=== PATIENT | female | born 1980 | race Caucasian/White ===

== ENCOUNTER → 2017-10-29 14:06 | Outpatient (CLI) | payer MEDICAID, SELFPAY ==
[2017-11-02 16:56] LABS: HPV Reflexed? NOT INDICATED
== END ==
PROVIDERS: Visit Provider Obstetrics & Gynecology
DX: Z12.4 Encounter for screening for malignant neoplasm of cervix (principal)
CPT/HCPCS: 88175; G0145

== ENCOUNTER 2019-07-20 11:34 | Emergency (ER) | payer SELFPAY ==
[2019-07-20 11:35] VITALS: BP 140/95; PULSE 72; RESP 16; TEMP 37; O2SAT 100; BMI 32.1
--- NOTE | 2019-07-20 11:52 | NURSING ---
NO OLD EKGS
--- NOTE | 2019-07-20 12:04 | NURSING ---
NO OLD EKGS
--- NOTE | 2019-07-20 12:20 | CT_ITS ---
STUDY: CTA CHEST REASON FOR EXAM: Female, 38 years old. SOB, PALPITATIONS, RT ARM TIGHTNESS, STERNAL DISCOMFORT RADIATION DOSAGE (If Supplied By Facility): CTDIvol = ( 10.94 ) mGy, DLP = ( 439.02 ) mGycm TECHNIQUE: The examination was performed with the intravenous administration of IV 100mL Isovue-370. Post-processing of the angiographic images was performed, with multiplanar reformation and 3D reconstruction. Individualized dose optimization techniques were used for this CT. COMPARISON: None. FINDINGS: Normal enhancement of the main pulmonary artery and right and left pulmonary arteries. Normal enhancement of the bilateral peripheral pulmonary arteries. There is no demonstrated pulmonary embolism. Normal thoracic aorta and visualized great vessels. There is no demonstrated aortic dissection. Normal heart and pericardium. Normal mediastinum. Normal hilar regions. Normal visualized trachea and bronchi. The lungs are well expanded. Normal pulmonary parenchyma. Normal pleura. Normal chest wall structures. Normal osseous structures. Small hiatal hernia. CT/CTA Chest W/WO Contrast IMPRESSION: Normal CTA chest examination, without a demonstrated pulmonary embolism or arterial dissection. Electronically Signed: Jignesh Guevara, at 13:37 EST , Service support ,
--- NOTE | 2019-07-20 12:20 | EKG12_ITS ---
Test Reason : SOB Blood Pressure : / mmHG Vent. Rate : 068 BPM Atrial Rate : 068 BPM P-R Int : 128 ms QRS Dur : 070 ms QT Int : 404 ms P-R-T Axes : 046 007 017 degrees QTc Int : 429 ms Normal sinus rhythm Normal ECG Confirmed by PRAMOD CROCKETT, JOSELUIS ([id number]), script editor AYDEN REEVES ([id number]) on 07/22/2019 10:03:06 AM Referred By: SOFIE/JULIA Confirmed By:SERA BENAVIDEZ MD
[2019-07-20] MEDS: Aspirin 81 MG TAB.CHEW 324 MG PO (12:41)
[2019-07-20 12:43] VITALS: BP 141/91; PULSE 66; RESP 18; O2SAT 100
[2019-07-20 12:44] LABS: Absolute Lymphocyte Count 1.94 X10^3/uL (0.83-4.51); Basophil# 0.08 X10^3/uL; Basophil% 1.2 % (0-1); Eosinophil# 0.19 X10^3/uL; Eosinophils% 2.9 % (0-5); Hematocrit 39.7 % (37-47); Hemoglobin 13.1 g/dL (12.0-15.0); Lymphocyte # 1.94 X10^3/ul (4.0); Lymphocyte % 29.9 % (19-41); Mean Corpuscular Hgb 29.8 pg (27.0-32.0); Mean Corpuscular Volume 90.2 fL (81-99); Mean Platelet Vol. 11.1 fl (6.2-12.0); Monocyte% 4.6 % (0-10); NRBC Flagged by Analyzer 0 % (0-5); Neutrophil # 3.96 X10^3/uL (2.7-7.7); Neutrophil % 61.2 % (47-70); Platelet Count 223 K/mm3 (150-450); RBC Distribution Width CV 12.5 % (11.6-14.6); RBC Distribution Width SD 41.2 fl (35.1-43.9); White Blood Count 6.5 K/mm3 (4.4-11.0)
[2019-07-20 13:04] LABS: Anion Gap 2 (5-15); BUN 5 mg/dL (7-18); BUN/Creat Ratio 7.2 RATIO (10-20); Calcium,Total 9.3 mg/dL (8.5-10.1); Chloride 110 mmol/L (98-107); Creatinine, Serum 0.69 mg/dL (0.55-1.02); EST Glomerular Filtration Rate 99 mL/min (>60); Est Glom Filt Rate - Afr Amer 120 mL/min (>60); Estimated Creatinine Clearance 93.59 ml/min; Glucose 95 mg/dL (74-106); Potassium 3.8 mmol/L (3.5-5.1); Sodium Level 140 mmol/L (136-145)
[2019-07-20 13:25] VITALS: BP 139/103; PULSE 64; RESP 14; O2SAT 97
[2019-07-20 14:05] VITALS: BP 110/91; PULSE 65; RESP 11; O2SAT 98
--- NOTE | 2019-07-20 14:06 | ED.VISSUMM ---
- ER Visit Summary Date of Service: 07/20/19 Chief Complaint: Chest pain History of Present Illness: The patient is a 38 F who presents with chest pain. Started today. She describes a tightness in the middle part of her chest. It does not radiate. Nothing really makes it better or worse. She did have associated shortness of breath with this. She had palpitations 2 days ago but they improved on their own. Her right arm felt tight last night. She has a history of a VSD which apparently closed in her 30s. She has no PE or DVT risk factors. She has no coronary artery disease history. She has seen Dr. Lyons in the past. Physical Examination: Vital signs reviewed. HEENT exam unremarkable. Heart is regular rate and rhythm without murmurs. Lungs are clear to auscultation. Abdomen is soft and nontender. Extremities reveal no edema. Peripheral pulses are equal. Skin exam normal. Neurologic exam normal. Test Results: EKG is a sinus rhythm with a rate of 63. No ST changes. Laboratory studies normal. CT of the chest reveals no evidence of PE or dissection Emergency Department Course and Treatment: The patient was given aspirin. I find no acute causes for the patient's pain. I did discuss with Dr. Lyons. He feels the patient can be discharged. He will see the patient in follow-up tomorrow. Patient was reassured Treatment Plan: [] Disposition: Discharge Impression: Chest pain This note was generated with [employer] dictation software. It may contain incorrect words, spelling, and punctuation that were not noted in review of the chart prior to signing ED Disposition - Plan for ED Patient: Disposition: Home or Assisted Living Instructions: CHEST PAIN, NonCardiac Referrals: Care Physician,No Primary [Primary Care Provider] - Victor Hugo Lyons MD [STAFF PHYSICIAN] -
[2019-07-20 14:19] VITALS: BP 110/91; PULSE 64; RESP 16; O2SAT 98
== END 2019-07-20 14:20 | disposition home or self-care (01) ==
PROVIDERS: Emergency Provider Emergency Medicine
DX: R07.89 Other chest pain (principal); R06.00 Dyspnea, unspecified; R00.2 Palpitations; Z87.74 Personal history of (corrected) congenital malformations of heart and circulatory system
CPT/HCPCS: 71275; 80048; 84484; 85025; 93005; 99285; Q9967; A4216